=== PATIENT | female | born 1945 | race Caucasian/White ===

== ENCOUNTER 2018-12-13 09:05 | Observation (INO) | payer OTHER, BC ==
[~2018-12-13] VITALS: Ht 167.6 cm; Wt 83.5 kg
[2018-12-13 09:42] LABS: HEMATOCRIT 40.3 % (37.0-47.0); HEMOGLOBIN 13.8 gm/dL (12.0-15.0); MCH 30.3 pg (26.0-34.0); MCHC 34.1 g/dL (28.0-37.0); MCV 88.9 fL (80.0-100.0); RBC 4.54 mil/uL (4.20-5.00); RDW 14.1 % (10.5-14.5)
[2018-12-13 09:44] VITALS: BP 152/74
[2018-12-13 09:50] LABS: ANION GAP 11 mmol/L (7-16); BUN 22 mg/dL (7-18); CALCIUM 9.9 mg/dL (8.5-10.1); CHLORIDE 101 mmol/L (98-107); CO2 28 mmol/L (21-32); GLUCOSE 91 mg/dL (74-106); POTASSIUM 3.7 mmol/L (3.5-5.1); SODIUM 140 mmol/L (136-145)
[2018-12-13] MEDS ORDERED: AMITRIPTYLINE H25 M2 PO (09:53)
[2018-12-13] MEDS ORDERED: SULAR17 MG PO (09:53)
[2018-12-13] MEDS ORDERED: CALCIUM 600 +1 EAC1 PO (09:53)
[2018-12-13] MEDS ORDERED: POTASSIUM20 PO (09:54)
[2018-12-13] MEDS ORDERED: PRAVACHOL40 MG PO (09:55)
[2018-12-13] MEDS ORDERED: ASPIR 8181 MG PO (09:55)
[2018-12-13 09:56] LABS: CHOLESTEROL 220 mg/dL (<200); HDL CHOLESTEROL 83 mg/dL (>40); LDL CHOLESTEROL 126 mg/dL (<100); TC:HDL 2.7 Ratio (Not establshd); TRIGLYCERIDE 55 mg/dL (<150); VLDL 11 mg/dL (<40)
[2018-12-13] MEDS ORDERED: BENICAR HCT 201 EACH PO (09:58)
--- NOTE | 2018-12-13 15:45 | EKG ---
[address] [address] ELECTROCARDIOGRAM REPORT Name: KRISTA GHOTRA [id number] Admission: 12/13/18 Attend Phys: Sea Wellington MD Discharge: Date of : 49 Report #: [id number] THIS REPORT FOR: //name// [facility] Test Date: 2018-12-13 Test Time: 09:30:02 Pat Name: KRISTA GHOTRA Department: Room: Gender: F Bsw: Omaira KHAN : 1945 Requested By: Sea Wellington Order Number: [id number] MD: Evaristo Dickey Measurements Intervals [place] Rate: 84 P: 76 HI: 159 QRS: 52 QRSD: 87 T: -10 QT: 376 QTc: 445 Interpretive Statements Sinus rhythm Ventricular premature complex Borderline repolarization abnormality No previous ECG available for comparison Electronically Signed On 12-13-2018 15:45:31 DOMAIN ARCHITECT by Evaristo Dickey [email or web address] <ELECTRONICALLY SIGNED> By: Evaristo Dickey MD 12/13/18 1545 0930 0930 Evaristo Dickey MD /TRINA
--- NOTE | 2018-12-13 16:33 | CATHLAB ---
[facility] [address] [place] [address] INVASIVE PROCEDURE REPORT Name: KRISTA GHOTRA [id number] Admission: 12/13/18 Attend Phys: Sea Wellington MD Discharge: Date of : 49 Date of Service: 12/13/18 1633 Report #: [id number] THIS REPORT FOR: //name// APPROVED REPORT Study performed: 12/13/2018 12:06:30 Patient Details The patient is a 73 year-old female Indication Dyspnea, Unstable angina Risk Factors Hypercholesterolemia, Hypertension Procedure Narrative The Right Groin^ was infiltrated with 1% Lidocaine subcutaneous anesthesia. A PINNACLE 4FR Sheath #[id number] sheath was inserted into the RFA^. Coronary angiography was performed using coronary diagnostic catheters. The right coronary system was accessed and visualized with a 4FR JL4 #[id number] JR 4 #[id number] catheter. The left coronary system was accessed and visualized with a 4FR JL4 #[id number] catheter. The left ventricle was accessed and visualized with a 4FR PIGTAIL 145 ANGLED #[id number] catheter. Left ventricular/Aortic Valve gradient assessed via catheter pullback. Left ventriculogram was performed in 30 degree projection. Closure device was deployed with a 6 Fr MYNXGRIP 6/7F #[id number]. There was no hematoma. Intraoperative Conscious Sedation Sedation start time: 12.28 Case end Time: 3.00 Fentanyl 50 mcg Versed 1 mg Fluoro Time: 30.37 minutes Dose: DAP 74938 cGycm2 4217 mGy Contrast Type and Amount: Visipaque 380 ml Coronary Angiography The patient's coronary anatomy is co- dominant. Diagnostic Cath Left Main This is a large-caliber vessel, patent with no flow-limiting lesions. LAD There is moderate diffuse stenosis in the proximal segment- [facility] [address] [place] [address] INVASIVE PROCEDURE REPORT Name: KRISTA GHOTRA Room #: REG [facility]#: [id number] Admission: 12/13/18 Attend Phys: Sea Wellington MD Discharge: Date of : 49 Date of Service: 12/13/18 1633 Report #: [id number] approximately 40-50%. There is a severe stenosis of 70% in the apical LAD. Recommend medical therapy. Diagonal 1 This is a small-caliber vessel, no flow-limiting lesions. Diagonal 2 This is a small-caliber vessel, with a 60% proximal stenosis. Recommend medical therapy. Circumflex This is a codominant vessel with a severe stenosis, 95% in the proximal segment. OM1 This is a moderate size caliber vessel, with no flow-limiting lesions. OM2 This is a moderate size caliber vessel, with no flow-limiting lesions. Right Coronary There is a moderate stenosis in the mid segment, 40-50%. R PDA This is a patent vessel, with no flow-limiting lesions. Left Ventriculography The left ventricle is normal in size with normal contractility. The left ventricular ejection fraction is estimated to be 55-60%. Hemodynamics The aortic pressure is 156/72 mmHg with a mean of 61 mmHg. The left ventricular pressure is 204/63 mmHg with a mean of mmHg. The left ventricular end diastolic pressure is 18 mmHg. There was no gradient across the aortic valve upon pullback. Pullback from the left ventricle to the aorta revealed no gradient across the aortic valve. PCI Technique Lesion Percutaneous coronary intervention was performed on the proximal circumflex artery segment. The lesion stenosis prior to intervention was 95% with BAY 3 flow. A PassionTagTA 6FR XB 3.5 #[id number] Guide Catheter was used to engage the ostium. A Luge Wire .014 x 182CM #[id number] Interventional Guidewire was used to cross the lesion. BALLOON DILATION A Balloon catheter Euphora RX 1.5 x 12 #[id number] was inserted and inflated up to 10.00atm for 24seconds. Additional Inflation: 20.00atm for 13seconds. 2.0x12 euphora multiple inflations/ 2.5x15 euphora multiple inflations2.5x12nc euphora mutiple inflations/2.75x12 nc euphora multiple inflations STENT DEPLOYMENT A drug-eluting stent RESOLUTE PAZ RX 2.5 X 15 #[id number] was inserted and inflated up to 18.00atm for 19seconds. [facility] [address] [place] [address] INVASIVE PROCEDURE REPORT Name: KRISTA GHOTRA Room #: REG CL [facility]#: [id number] Admission: 12/13/18 Attend Phys: Sea Wellington MD Discharge: Date of : 49 Date of Service: 12/13/18 1633 Report #: [id number] POST STENT DEPLOYMENT BALLOON DILATION A Balloon catheter [employer] [place] RX 2.75 x 12 #[id number] was inserted and inflated up to 18.00atm for 15seconds. Final angiography reveals 0 % stenosis with BAY 3 flow. Conclusion 1. Successful insertion of a drug-eluting stent into the proximal left circumflex artery stenosis. 2. Severe stenosis in the apical LAD, recommend medical therapy. 3. Moderate disease in the LAD and RCA. 4. Normal LV systolic function. 5. Recommend dual antiplatelet therapy and aggressive risk factor management. <ELECTRONICALLY SIGNED> By: Sea Wellington MD 12/13/18 1633 32 32 Sea Wellington MD /INF
--- NOTE | 2018-12-13 17:00 | EKG ---
[place] [address] [facility] [place] [address] ELECTROCARDIOGRAM REPORT Name: KRISTA GHOTRA [facility] [id number] Admission: 12/13/18 Attend Phys: Sea Wellington MD Discharge: Date of : 49 Report #: [id number] THIS REPORT FOR: //name// [facility] Test Date: 2018-12-13 Test Time: 16:07:44 Pat Name: KRISTA GHOTRA Department: Room: Gender: F Plant Assigner: Dianne DERAS : 1945 Requested By: Sea Wellington Order Number: [id number] MD: Kyree Buchanan Measurements Intervals [place] Rate: 83 P: 77 KS: 154 QRS: 42 QRSD: 84 T: -4 QT: 400 QTc: 470 Interpretive Statements Sinus rhythm Nonspecific ST segment abnormality Compared to ECG 12/13/2018 09:30:02 Ventricular premature complex(es) no longer present Electronically Signed On 12-13-2018 17:00:[address] TEAM MEMBER by Kyree Buchanan [email or web address] <ELECTRONICALLY SIGNED> By: Kyree Buchanan MD, [facility] 12/13/18 1700 160 Kyree Buchanan MD, FACC /EPI
--- NOTE | 2018-12-13 17:46 | NUR ---
PT TO THE UNIT POST CATH. GROIN AND VSS. NO CO'S OF NAUSEA. - CO'S OF SLIGHT HEADACHE POST PROCEDURE. AMANDA DIET AND FLUIDS. IV INFUSING ORDERED, PT TO REMAIN ON BEDREST UNTIL 1999. AMANDA DIET AND FLUIDS. PT ORIENTED TO ROOM AND BEDSPACE. NO CO'S AT THE PRESENT TIME.
[2018-12-13 19:37] VITALS: BP 92/57
[2018-12-13 21:30] VITALS: BP 126/67
[2018-12-14 00:22] VITALS: BP 106/58
--- NOTE | 2018-12-14 03:48 | NUR ---
ASSUMED PT CARE AT 1900. VSS. PT A&OX4. PT WAS OFF BEDREST AT 1999. KELLEY D/C AFTER BEDREST WAS OVER, WELL MAINTENANCE IV FLUIDS. PT HAS VOIDED SINCE REMOVAL OF KELLEY, 9ML OF STERILE SALINE WAS IN THE BULB AT THE TIME OF KELLEY REMOVAL. PT IS STEADY ON HER FEET. NO COMPLAINTS OF PAIN OR DISTRESS, SHE RESTED WELL ALL NIGHT. WILL CONT TO MONITOR PER POC.
[2018-12-14 04:03] VITALS: BP 121/56
[2018-12-14 04:55] LABS: HEMATOCRIT 35.9 % (37.0-47.0); MCH 29.6 pg (26.0-34.0); MCV 89.6 fL (80.0-100.0); RDW 14.3 % (10.5-14.5)
[2018-12-14 05:01] LABS: HEMOGLOBIN 11.8 gm/dL (12.0-15.0)
[2018-12-14 05:07] LABS: ALBUMIN 3.3 g/dL (3.4-5.0); CALCIUM 8.8 mg/dL (8.5-10.1); CREATININE 0.9 mg/dL (0.6-1.0); POTASSIUM 4.1 mmol/L (3.5-5.1); TOTAL BILIRUBIN 0.6 mg/dL (<0.1-1.0); TOTAL PROTEIN 6.1 g/dL (6.4-8.2)
[2018-12-14 05:14] LABS: TROPONIN-I 2.02 ng/mL (<0.06)
[2018-12-14 07:25] VITALS: BP 123/62
--- NOTE | 2018-12-14 08:19 | EKG ---
[address] [address] ELECTROCARDIOGRAM REPORT Name: KRISTA GHOTRA Room #: 203-[facility]#: [id number] Admission: 12/13/18 Attend Phys: Sea Wellington MD Discharge: Date of : 49 Report #: [id number] THIS REPORT FOR: //name// [facility] Test Date: 2018-12-14 Test Time: 07:00:44 Pat Name: KRISTA GHOTRA Department: Room: 203 Gender: F Corduroy Brusher Operator: MARYANNE : 1945 Requested By: Sea Wellington Order Number: [id number] MD: Kyree Buchanan Measurements Intervals [place] Rate: 75 P: 67 MT: 168 QRS: 34 QRSD: 90 T: 7 QT: 422 QTc: 472 Interpretive Statements Sinus rhythm Baseline wander in lead(s) V5 Compared to ECG 12/13/2018 16:07:44 No significant change was found Electronically Signed On 12-14-2018 8:19:26 USER EXPERIENCE ARCHITECT by Kyree Buchanan [email or web address] <ELECTRONICALLY SIGNED> By: Kyree Buchanan MD, [facility] 12/14/18818 9 9 Kyree Buchanan MD, [facility] /EPI
[2018-12-14] MEDS ORDERED: EFFIENT10 MG PO (08:26)
[2018-12-14] MEDS ORDERED: ATORVASTATIN CA80 MG PO (08:26)
[2018-12-14] MEDS ORDERED: CARVEDILOL12.5 MG PO (08:27)
[2018-12-14 09:08] VITALS: BP 121/56
--- NOTE | 2018-12-14 11:47 | NUR ---
assessment as charted - meds as per jan - no co's of pain or nausea. vss and grain site stable. pt up ad ryne in room - flavio diet and fluids. seen by cardiac rehab this am - instruction re home meds/ care and follow up given to pateint - stated understanding of insruction given. pt left unit via wheel chair -home via pvt vehicle accompanied by and daughter - iv and moitor removed prior to d/c. no co's at time of d/c.
--- NOTE | 2018-12-15 08:42 | D ---
[facility] [place] [address] DISCHARGE SUMMARY Name: KRISTA GHOTRA Room #: 203-[facility]#: [id number] Admission: 12/13/18 Attend Phys: Sea Wellington MD Discharge: 12/14/18 Date of : 49 Report #: [id number] THIS REPORT FOR: //name// CC: Alex Wellington DATE OF SERVICE: 12/14/2018 FINAL DIAGNOSES: 1. Unstable angina, status post coronary intervention. 2. Hypertension. 3. Hypercholesterolemia. 4. Edema. 5. Peptic ulcer disease. HOSPITAL COURSE: Please see the original H and P for full details. The patient initially presented in 07/2018 with complaints of dyspnea. A cardiac evaluation at that time was unremarkable. She then presented in 11/2018 with complaints of new onset angina. She described experiencing left arm and chest discomfort occurring at night and during the daytime. Please see the cardiac catheterization report for full details. She had a severe occlusion in the proximal left circumflex artery, undergoing stent insertion. There is moderate disease in the LAD and RCA. There is a severe stenosis in the apical LAD, medical therapy is recommended. She has remained clinically stable overnight. She denies any episodes of chest pain or shortness of breath. I emphasized the importance of compliance with dual antiplatelet therapy. She will be discharged on aspirin 81 mg, Effient 10 mg, Lipitor 40 mg daily, Coreg 12.5 mg twice a day. She will continue with Benicar/HCTZ. I will arrange for followup in the office in a few weeks. <ELECTRONICALLY SIGNED> By: Sea Wellington MD 12/15/18 0842 0835 0853 Sea Wellington MD /nt
== END 2018-12-14 11:45 | disposition home or self-care (01) ==
LOC: CATH 09:05 → 2N 17:04 → CATH 17:05 → ENTRNSPT 12-14 11:34 → EDTRNSPTSTS 12-14 11:40 → 2N 12-14 11:45
PROVIDERS: ADMIT Internal Medicine Cardiovascular Disease
DX: I25.110 Atherosclerotic heart disease of native coronary artery with unstable angina pectoris (principal); I10 Essential (primary) hypertension; E78.00 Pure hypercholesterolemia, unspecified; R60.9 Edema, unspecified; K27.9 Peptic ulcer, site unspecified, unspecified as acute or chronic, without hemorrhage or perforation
CPT/HCPCS: 10081

== ENCOUNTER → 2018-12-18 | Outpatient (CLI) | payer OTHER, BC ==
[~2018-12-18] MED LIST: AMITRIPTYLINE H25 M2 PO; ASPIR 8181 MG PO; ATORVASTATIN CA80 MG PO; BENICAR HCT 201 EACH PO; CALCIUM 600 +1 EAC1 PO; CARVEDILOL12.5 MG PO; EFFIENT10 MG PO; POTASSIUM20 PO; PRAVACHOL40 MG PO; SULAR17 MG PO
--- NOTE | 2018-12-18 14:35 | 2DMMODE ---
[facility] [employer] [address] 2 D/M-MODE ECHOCARDIOGRAM Name: KRISTA GHOTRA Room #: REG [facility]#: [id number] Admission: 12/18/18 Attend Phys: Sea Wellington MD Discharge: Date of : 49 Date of Service: 12/18/18 1435 Report #: [id number] THIS REPORT FOR: //name// APPROVED REPORT Study performed: 12/18/2018 13:29:59 EXAM: Comprehensive 2D, Doppler, and color-flow Echocardiogram Patient Location: Echo lab Status: routine BSA: 1.89 HR: 75 bpm BP: 111/68 mmHg Rhythm: NSR Other Information Study Quality: Good Risk Factors: Cardiac Risk Factors: HTN, Hyperlipidemia Indications Dyspnea CAD Chest Pain S/P Stent proximal left circumflex 2D Dimensions IVSd: 9.48 (7-11mm) LVOT Diam: 18.00 (18-24mm) LVDd: 38.79 mm PWd: 9.36 (7-11mm) Ascending Ao: 27.92 (22-36mm) LVDs: 26.88 (25-40mm) Aortic Root: 27.18 mm LV Single Plane 4CH: 61.49 % LV Single Plane 2CH: 63.55 % Volumes Left Atrial Volume (Systole) Single Plane 4CH: 21.35 mL Single Plane 2CH: 33.59 mL LA ESV Index: 20.00 mL/m2 Aortic Valve AoV Peak Scottie.: 1.31 m/s AO Peak Gr.: 6.84 mmHg LVOT Max P.72 mmHg [facility] [address] [place] [address] 2 D/M-MODE ECHOCARDIOGRAM Name: KRISTA GHOTRA Room #: REG CL [facility]#: [id number] Admission: 12/18/18 Attend Phys: Sea Wellington MD Discharge: Date of : 49 Date of Service: 12/18/18 1435 Report #: [id number] LVOT Max V: 0.96 m/s FALGUNI Vmax: 1.89 cm2 Mitral Valve E/A Ratio: 0.7 MV Decel. Time: 265.36 ms MV E Max Scottie.: 0.71 m/s MV A Scottie.: 1.07 m/s MV PHT: 76.96 ms IVRT: 55.36 ms TDI E/Lateral E': 17.75 E/Medial E': 11.83 Medial E' Scottie.: 0.06 m/s Lateral E' Scottie.: 0.04 m/s Pulmonary Valve PV Peak Scottie.: 1.17 m/s PV Peak Gr.: 5.52 mmHg Pulmonary Vein P Vein S: 0.62 m/s P Vein A: 0.26 m/s P Vein D: 0.44 m/s P Vein A Dur.: 100.3 msec P Vein S/D Ratio: 1.41 Tricuspid Valve TR Peak Scottie.: 2.46 m/s RAP Estimate: 7.00 mmHg TR Peak Gr.: 24.14 mmHg PA Pressure: 31.00 mmHg Left Ventricle The left ventricle is normal size. There is normal left ventricular wall thickness. Left ventricular systolic function is normal. The left ventricular ejection fraction is within the normal range. LVEF is 60-65%. Grade I - abnormal relaxation pattern. Right Ventricle The right ventricle is normal size. The right ventricular systolic function is normal. Atria The left atrium size is normal. The right atrium size is normal. Aortic Valve The aortic valve is normal in structure. Trace aortic regurgitation. There is no aortic valvular stenosis. [facility] [address] [place] [address] 2 D/M-MODE ECHOCARDIOGRAM Name: KRISTA GHOTRA Room #: REG CL Lisa#: [id number] Admission: 12/18/18 Attend Phys: Sea Wellington MD Discharge: Date of : 49 Date of Service: 12/18/18 1435 Report #: [id number] Mitral Valve The mitral valve is normal in structure. Trace mitral regurgitation. No evidence of mitral valve stenosis. Tricuspid Valve The tricuspid valve is normal in structure. Mild to moderate tricuspid regurgitation. Pulmonary artery pressure is 31 mmHg. Pulmonic Valve The pulmonary valve is normal in structure. There is no pulmonic valvular regurgitation. Great Vessels The aortic root is normal in size. IVC is normal in size and collapses >50% with inspiration. Pericardium There is no pericardial effusion. <Conclusion> The left ventricle is normal size. There is normal left ventricular wall thickness. Left ventricular systolic function is normal. Grade I - abnormal relaxation pattern. The right ventricle is normal size. The left atrium size is normal. Trace aortic regurgitation. Trace mitral regurgitation. Mild to moderate tricuspid regurgitation. Pulmonary artery pressure is 31 mmHg. <ELECTRONICALLY SIGNED> By: Sea Wellington MD 12/18/18 1435 1435 1435 Sea Wellington MD /INF
== END ==
LOC: CV 12:59 → RAD 12:59
DX: I07.1 Rheumatic tricuspid insufficiency (principal); I25.10 Atherosclerotic heart disease of native coronary artery without angina pectoris